=== PATIENT | male | born 1970 | race Caucasian/White ===

== ENCOUNTER 2017-01-23 17:22 | Emergency (ER) | payer MEDICARE, OTHER ==
[2017-01-23 17:34] VITALS: BP 152/106
[2017-01-23] MEDS ORDERED: Doxycycline 100 MG Cap PO ONE (18:05)
--- NOTE | 2017-01-23 18:06 | EDM.PDOC ---
ED HPI GENERAL MEDICAL PROBLEM - General Chief Complaint: Bite:Animal, Insect Stated Complaint: FEVER/CHILLS,BODY ACHES, TICK BITE Time Seen by Provider: 01/23/17 18:01 Source of Information: Reports: Patient, Family () - History of Present Illness INITIAL COMMENTS - FREE TEXT/NARRATIVE: With tick bite on Tuesday. Developed tenderness to area. Today with fever, body ache. Took Tylenol 1000mg 1 hour prior to coming to ER. Has been tired today. Onset: Today Onset Date: 01/23/17 Onset Time: 18:03 Location: Reports: Upper Extremity, Left Severity: Moderate Improves with: Reports: None Worsens with: Reports: None Context: Reports: Other (tick bite) Associated Symptoms: Reports: Fever/Chills, Loss of Appetite, Malaise Treatments [employer]: Reports: Acetaminophen Generalized Pain Score (Numeric/FACES): 3 - Related Data Allergies Allergy/AdvReac Type Severity Reaction Status Date / Time naproxen [From Aleve] Allergy Anaphylactic Verified 01/23/17 17:36 Shock Home Meds: Home Meds Lisinopril 30 mg PO DAILY 08/23/14 [History] Methocarbamol 750 mg PO BID PRN 08/23/14 [History] Aspirin [Ecotrin] 325 mg PO DAILY 03/03/15 [History] Past Medical History Cardiovascular History: Reports: High Cholesterol, Hypertension Musculoskeletal History: Reports: Back Pain, Chronic Neurological History: Reports: Migraines Psychiatric History: Reports: Anxiety, Depression, PTSD - Past Surgical History GI Surgical History: Reports: Appendectomy, Hernia Repair/Other Neurological Surgical History: Reports: Other (See Below) Other Neurological Surgeries/Procedures: plate in neck and low back from injuries Musculoskeletal Surgical History: Reports: Shoulder Surgery Social & Family History - Tobacco Use Smoking Status *Q: Never Smoker Years of Tobacco use: 30 Second Hand Smoke Exposure: No - Alcohol Use Days Per Week of Alcohol Use: 0 - Recreational Drug Use Recreational Drug Use: No ED ROS GENERAL - Review of Systems Review Of Systems: See Below Constitutional: Reports: Fever, Chills, Malaise, Fatigue HEENT: Reports: No Symptoms Respiratory: Reports: No Symptoms Cardiovascular: Reports: No Symptoms GI/Abdominal: Reports: No Symptoms Musculoskeletal: Reports: Joint Pain Skin: Reports: Rash Neurological: Reports: Dizziness, Headache Psychiatric: Reports: No Symptoms Hematologic/Lymphatic: Reports: No Symptoms ED EXAM, ANIMAL BITE - Physical Exam Exam: See Below Exam Limited By: No Limitations General Appearance: Alert, WD/WN, No Apparent Distress Ears: Normal External Exam, Normal Canal, Hearing Grossly Normal, Normal TMs Nose: Normal Inspection, Normal Mucosa, No Blood Throat/Mouth: Normal Inspection, Normal Lips, Normal Teeth, Normal Gums, Normal Oropharynx, Normal Voice, No Airway Compromise Head: Atraumatic, Normocephalic Neck: Normal Inspection, Supple, Non-Tender, Full Range of Motion Respiratory/Chest: No Respiratory Distress, Lungs Clear, Normal Breath Sounds, No Accessory Muscle Use, Chest Non-Tender Cardiovascular: Normal Peripheral Pulses, Regular Rate, Rhythm, No Edema, No Gallop, No JVD, No Murmur, No Rub GI/Abdominal: Normal Bowel Sounds, Soft, Non-Tender, No Organomegaly, No Distention, No Abnormal Bruit, No Mass Extremities: Normal Inspection, Normal Range of Motion, Non-Tender, Normal Capillary Refill, No Pedal Edema Neurological: Alert, Oriented, CN II-XII Intact, Normal Cognition, Normal Gait, Normal Reflexes, No Motor/Sensory Deficits Skin Exam: Other (small puncture wound to left upper thigh with redness around it. Tender to touch.) Course - Vital Signs Last Recorded V/S: Last Vital Signs Temp 101.5 F H 01/23/17 18:24 Pulse 104 H 01/23/17 17:30 Resp 18 01/23/17 17:30 BP 152/106 H 01/23/17 17:30 Pulse Ox 94 L 01/23/17 17:30 - Orders/Labs/Meds Orders: Active Orders 24 hr Category Date Time Status BABESIA MICROTI IGG AND IGM [REF] Stat Lab 01/23/17 18:32 Ordered EHRLICHIA CHAFFEENSIS, IGG&IGM [REF] Stat Lab 01/23/17 18:17 Received LYME AB SCREEN RFLX [REF] Stat Lab 01/23/17 18:17 Received Labs: Laboratory Tests 01/23/17 Range/Units 18:17 WBC 7.5 (4.5-11.0) K/uL RBC 5.08 (4.30-5.90) M/uL Hgb 14.7 (12.0-15.0) g/dL Hct 42.9 (40.0-54.0) % MCV 84 (80-98) fL MCH 29 (27-31) pg MCHC 34 (32-36) % Plt Count 225 (150-400) K/uL Neut % (Auto) 76 H (36-66) % Lymph % (Auto) 11 L (24-44) % [place] % (Auto) 13 H (2-6) % Eos % (Auto) 0 L (2-4) % Baso % (Auto) 0 (0-1) % Meds: Medications Discontinued Medications Generic Name Dose Route Start Last Admin Trade Name Freq PRN Reason Stop Dose Admin Doxycycline Hyclate 200 mg 01/23/17 18:05 01/23/17 18:25 Vibramycin PO 01/23/17 18:06 200 mg ONETIME ONE Administration Departure - Departure Time of Disposition: 18:34 Disposition: Home, Self-Care 01 Condition: good Clinical Impression: Tick bite of groin Qualifiers: Encounter type: initial encounter Qualified Code(s): S30.861A - Insect bite ( nonvenomous) of abdominal wall, initial encounter; W57.XXXA - Bitten or stung by nonvenomous insect and other nonvenomous arthropods, initial encounter - Discharge Information Forms: ED Department Discharge Additional Instructions: CBC WNL. Tick testing pending. Will treat presumptively with Doxycycline 100mg BID x 14 days. 1st dose given today in ER. Continue treating fever with Tylenol as needed. Discussed s/s of tickborne illness with pt and . - Problem List & Annotations (1) Tick bite of groin SNOMED Code(s): 14969946 Code(s): S30.861A - INSECT BITE (NONVENOMOUS) OF ABDOMINAL WALL, INIT ENCNTR ; W57.XXXA - BIT/STUNG BY NONVENOM INSECT & OTH NONVENOM ARTHROPODS, INIT Status: Acute Priority: Low Current Visit: Yes Qualifiers: Encounter type: initial encounter Qualified Code(s): S30.861A - Insect bite (nonvenomous) of abdominal wall, initial encounter; W57.XXXA - Bitten or stung by nonvenomous insect and other nonvenomous arthropods, initial encounter - My Orders Last 24 Hours: My Active Orders 01/23/17 18:17 EHRLICHIA CHAFFEENSIS, IGG&IGM [REF] Stat LYME AB SCREEN RFLX [REF] Stat 01/23/17 18:32 BABESIA MICROTI IGG AND IGM [REF] Stat - Assessment/Plan Last 24 Hours: My Active Orders 01/23/17 18:17 EHRLICHIA CHAFFEENSIS, IGG&IGM [REF] Stat LYME AB SCREEN RFLX [REF] Stat 01/23/17 18:32 BABESIA MICROTI IGG AND IGM [REF] Stat
== END 2017-01-23 18:50 | disposition home or self-care (01) ==
LOC: JP.ED 17:22
DX: S30.861A Insect bite (nonvenomous) of abdominal wall, initial encounter (principal); G43.909 Migraine, unspecified, not intractable, without status migrainosus; Z88.8 Allergy status to other drugs, medicaments and biological substances; Z79.82 Long term (current) use of aspirin; Z79.899 Other long term (current) drug therapy; Z90.49 Acquired absence of other specified parts of digestive tract; Z98.890 Other specified postprocedural states; W57.XXXA Bitten or stung by nonvenomous insect and other nonvenomous arthropods, initial encounter
CPT/HCPCS: 85025; 86618; 86666; 86753; 99283; A9270; 36415

== ENCOUNTER 2019-03-27 09:15 | Day surgery (SDC) | payer MEDICARE, OTHER ==
[~2019-03-27 09:15] MED LIST: Bupivacaine 0.5% 50 ML MDV ONE; Lidocaine 1% with EPINEPHrine 1:100,000 50 ML MDV ONE; Meropenem 500 MG SDV ONE
[2019-03-27] MEDS ORDERED: Dexamethasone 4 MG/ML SDV ONE (09:16)
[2019-03-27] MEDS ORDERED: Succinylcholine 200 MG/10 ML MDV ONE (09:16)
[2019-03-27] MEDS ORDERED: Rocuronium 50 MG/5 ML Vial ONE (09:16)
[2019-03-27] MEDS ORDERED: Glycopyrrolate 0.2 MG/ML 5 ML MDV ONE (09:16)
[2019-03-27] MEDS ORDERED: Propofol 200 MG/20 ML SDV ONE ×2 (09:16→12:01)
[2019-03-27] MEDS ORDERED: Ondansetron 4 MG/2 ML SDV ONE (09:16)
[2019-03-27] MEDS ORDERED: Neostigmine Methylsulfate 1 MG/ML 5 ML Syringe ONE (09:16)
[2019-03-27] MEDS ORDERED: Dextrose 5%-Lactated Ringers 1,000 ML IV SCH (09:30)
[2019-03-27] MEDS ORDERED: Acetaminophen 500 MG Tab PO ONE (09:30)
[2019-03-27] MEDS ORDERED: ceFAZolin 2 GM in Sodium Chloride 0.9% 50 ML IV ONE (09:30)
[2019-03-27] MEDS ORDERED: Ketamine 50 MG in Sodium Chloride 0.9% 49.5 ML IV SCH (10:45)
[2019-03-27] MEDS ORDERED: Ketamine 500 MG/5 ML MDV IV SCH (10:45)
[2019-03-27] MEDS ORDERED: Ketorolac 60 MG/2 ML SDV ONE (12:49)
[2019-03-27] MEDS ORDERED: hydrOXYzine HCl 100 MG/2 ML SDV IM ONE (14:00)
[2019-03-27] MEDS ORDERED: Ondansetron 4 MG/2 ML SDV IVPUSH PRN (14:16)
[2019-03-27] MEDS ORDERED: Methocarbamol 500 MG Tab PO PRN (14:20)
[2019-03-27] MEDS: Tamsulosin 0.4 MG Cap.ER PO SCH ×2 (16:26→21:51)
[2019-03-27] MEDS: Lisinopril 10 MG Tab PO SCH (17:56)
[2019-03-27] MEDS: ceFAZolin 2 GM in Sodium Chloride 0.9% 50 ML IV SCH (17:57)
[2019-03-27] MEDS: Acetaminophen/oxyCODONE 325-5 MG Tab PO PRN (19:18)
[2019-03-27] MEDS: Dextrose 5%-Lactated Ringers 1,000 ML IV SCH (21:51)
[2019-03-28] MEDS: ceFAZolin 2 GM in Sodium Chloride 0.9% 50 ML IV SCH (02:30)
[2019-03-28] MEDS: Dextrose 5%-Lactated Ringers 1,000 ML IV SCH (05:59)
[2019-03-28 06:55] VITALS: BP 144/72; PULSE 89
[2019-03-28] MEDS: Acetaminophen/oxyCODONE 325-5 MG Tab PO PRN (07:11)
[2019-03-28] MEDS ORDERED: Aspirin 325 MG Tab.EC PO SCH (09:00)
[2019-03-28] MEDS: Lisinopril 10 MG Tab PO SCH (09:30)
--- NOTE | 2019-03-29 02:17 | DISCH ---
ADMISSION DIAGNOSES: 1. Bilateral inguinal hernia. 2. Umbilical hernia. 3. Central hypertension. 4. Morbid obesity, BMI 40. 5. Chronic pain. 6. Anxiety. 7. Depression. 8. Hypertriglyceridemia. 9. Gastroesophageal reflux disease. 10.Panic disorder. 11.Tobacco use. DISCHARGE DIAGNOSES: 1. Diagnostic laparoscopy with lysis of adhesions. a. Repair of umbilical hernia with mesh. b. Placement of Vicryl mesh. c. Left inguinal exploration and repair of recurrent incisional left inguinal hernia with mesh and excision of left inguinal nerve and right inguinal exploration and repair of right inguinal hernia with mesh and excision of right inguinal nerve and excision of subfascial lipoma. d. Incarcerated umbilical hernia with extensive intraabdominal adhesions, recurrent and incarcerated, left inguinal hernia direct and indirect right inguinal hernia with ileal inguinal nerve scar entrapment and subfascial lipoma, right inguinal fascia. Date of surgery: 03/27/2019. Surgeon, Dwaine Cardozo MD. HISTORY: Chivo Rene is a 48-year-old male with the above chief complaints. After preoperative evaluation and discussion of possible risks and possible complications, he wished to proceed with surgical procedure. HOSPITAL COURSE: Chivo had a surgery on 03/27/2019. He had no operative complications. On postoperative day #1, his pain was managed. His activity was good. Vital signs were stable and he was able to be discharged to home. During the night, he had several episodes of where his pulse oximetry would decrease into the high 70s and 80s and he had episodes of what thought was to be sleep apnea. He did have O2 per nasal cannula at 1.5 L. when awake, his oximetry was 93% to 94%. He has never had a sleep study. PHYSICAL EXAMINATION: GENERAL: Chivo Rene is a 48-year-old male. VITAL SIGNS: Height is 6 feet, weight is 295 pounds. His BMI is 40. TPR 96, 89, 18, blood pressure is 144/72. O2 oximetry is 93% on room air. HEENT: Negative. NECK: Supple. HEART: Regular rate and rhythm. LUNGS: Clear. ABDOMEN: Stapled incisions of right groin and left groin inguinal area. Dressings dry and intact. He has a pressure dressing over umbilical hernia area. Abdominal binder is on. EXTREMITIES: Without peripheral edema. DISPOSITION: Discharged to home. CONDITION: Stable and improving. FOLLOWUP: Followup appointment with Fariba Myers PA-C on 04/06/2019 at 10 a.m. HOME MEDICATIONS: Percocet 5/325 mg one every 6 hours p.r.n. pain #28. He is to restart methocarbamol 750 mg b.i.d. p.r.n., lisinopril 30 mg p.o. daily, epinephrine epi pack as directed, aspirin 325 mg p.o. daily. DIET: Regular diet as tolerated. Drink 8 to 10 glasses a day of water. ACTIVITY: No lifting more than 10 pounds for 6 weeks. DRIVING: Do not drive for 1 week and while on pain medication. SHOWER: May shower. Keep operative site clean and dry. Wear a pressure dressing over umbilical hernia site with abdominal binder for 6 weeks. May take off dressing in a.m. Notify provider if any fever, increased pain, swelling, redness, nausea, or vomiting. OTHER SPECIAL INSTRUCTION: Use incentive spirometer 10 times every hour while awake for 1 week and follow up with PCP to discuss getting a sleep apnea test.
--- NOTE | 2019-03-29 18:08 | OR ---
DATE OF PROCEDURE: 03/27/2019 PREOPERATIVE DIAGNOSES: 1. Umbilical hernia. 2. Recurrent incarcerated left inguinal hernia. 3. Non-incarcerated and nonrecurrent right inguinal hernia. POSTOPERATIVE DIAGNOSES: 1. Incarcerated umbilical hernia with extensive intraabdominal adhesions. 2. Recurrent incarcerated left inguinal hernia (direct) with ilioinguinal nerve at risk for scar entrapment. 3. Nonrecurrent and non-incarcerated right inguinal hernia (indirect) with ilioinguinal nerve at risk of scar entrapment. 4. Subfascial lipoma, right inguinal floor. OPERATIVE PROCEDURES: 1. Diagnostic laparoscopy with lysis of adhesions and. a. Repair of incarcerated umbilical hernia with mesh (42151). b. Placement of Vicryl mesh to limit adhesion formation between pelvic and abdominal ramírez and underlying viscera (35616). 2. Left inguinal exploration with. a. Repair of recurrent incarcerated left inguinal hernia with mesh (86406). b. Excision of portion of left ilioinguinal nerve (46820). 3. Right inguinal exploration with. a. Repair of right inguinal hernia with mesh (93561). b. Excision of portion of right ilioinguinal nerve (20529). c. Excision of subfascial lipoma (6 cm) on superior aspect of inguinal floor (15931). ANESTHESIA: General. PATIENT CASE COORDINATOR: Fariba Myers PA-C. INDICATION FOR PROCEDURE: The patient presents with an enlarging umbilical hernia as well as bilateral inguinal hernias with the left side having been repaired when he was around age 16. The plan was to proceed with laparoscopic repair of the umbilical hernia with mesh and then repair of the inguinal hernias bilaterally with mesh-plug technique. Potential risks of the procedure including bleeding, infection, injury to underlying viscera, problems with hernias recurring or the mesh becoming infected were gone over, we will often divide the ilioinguinal nerve to avoid chronic pain associated with scarring around the nerve related to the mesh placed across the inguinal floor, that this will result in an area of anesthesia at and below the incision was reviewed with the patient, and he wishes to proceed. DETAILS OF PROCEDURE: The patient was taken to the operating room and placed in a supine position. After general endotracheal anesthesia was induced, a Schwartz catheter was inserted (this was removed at the end of the procedure), and the abdomen was prepped and draped. In the left lateral abdomen, a transverse incision was made and the peritoneal cavity entered under direct vision with an Optiview trocar and inflated to 15 mmHg pressure of CO2. Laparoscope was inserted and no underlying trocar insertion site injuries were seen. Bilateral transversus abdominis plane blocks were then placed in the left upper quadrant as well as the left lower quadrant. The patient was noted to have quite a bit in way of adhesions around the area of the umbilicus as well as previous appendectomy site. These were taken down with Harmonic scalpel. The patient had some incarcerated omentum within the umbilical hernia, which was excised flush with the sac and a portion of the sac was then also excised and sent as a specimen. The falciform ligament was cleared as was the ligamentous tissues inferior to the umbilicus to allow a flat plane for placement of the mesh. A 20.3-cm circular Ventralight ST mesh with balloon positioning system was selected and placed in antibiotic saline solution. This was then placed in intraperitoneal location with a small stab wound on the inferior aspect of the umbilicus being made. The balloon catheter was pulled up out through the abdominal wall, thus positioning the mesh in centered location underlying the hernia. Balloon was then filled up and then the mesh was circumferentially fixed to the abdominal wall with absorbable tacking screws. However, a circumferential ring was then placed and a smaller internal ring closer to the umbilicus was made, after which the balloon catheter was deflated, and the balloon removed leaving the mesh in good position. A 12-inch segment of Vicryl mesh was then placed into the abdomen and placed down along the pelvic sidewalls and behind the urinary bladder and up against the anterior abdominal wall to limit recurrent adhesion formation. Once this was completed, the trocars were removed. The fascia at the 12 mm site was closed with some 0 Vicryl stitch, and the skin at each incision with skin rodolfo. Attention was then taken to the left inguinal area. The previous left inguinal incision was then reused and carried down through the skin and subcutaneous tissue, and through the external oblique aponeurosis. The patient was noted to have some incarcerated fatty tissue, probably some perivesical fat in the medial aspect of the hernia. This was reduced as the transversalis fascia was incised. Cord structures were mobilized upward. The patient was noted to have no recurrence of the indirect component, which he had repaired when he was aged 16. Once the area of dissection was completed, the ilioinguinal nerve was noted to lay right across the floor, where the flat portion of the mesh-plug system would be placed, and this was then divided and excised at the far-lateral aspect of the incision. The transversalis fascia was opened, the dissection underneath the conjoint tendon superiorly, medially, and laterally was accomplished. An extra-large mesh-plug was then placed into the defect and affixed to the Dale's ligament with titanium tacking screws and then to the underside of the conjoint tendon medially, laterally, and superiorly with horizontal mattress sutures of 0 Vicryl stitch. The flat portion of the mesh-plug system was then placed across the inguinal floor and sutured lateral to the cord structures with 0 Vicryl stitch, and the medial aspect fixed to pubic tubercle with a titanium tacking screw. Over this, cord structures were placed and the external oblique aponeurosis was approximated with a 3-0 Vicryl stitch as was the subcutaneous tissue, and the skin closed with rodolfo. The area was anesthetized with an additional 1% lidocaine mixed with Marcaine as well. Attention was then taken to the right side. A symmetrical incision was made and carried down through the skin and subcutaneous tissue, and through the external oblique aponeurosis. On the superior aspect of the incision overlying the inguinal floor, but behind Lucas's fascia line, was a 6-cm lipoma. This was excised and sent for separate histologic evaluation. External oblique aponeurosis was then divided. Subaponeurotic flaps were raised superiorly and inferiorly, and the cord structures were mobilized upward. The floor in this case was noted to be intact medially, and the patient had a smaller indirect hernia. This was dissected free down to the level of the internal ring, after division of the cremasteric fibers and then reduced. A medium mesh-plug was then used on this side and affixed to the underlying conjoint tendon sutured with horizontal mattress sutures of 3-0 Vicryl stitch. The external ring was then tightened up lateral to the cord structures as well with [id number] stitch of 0 Vicryl stitch. The flat portion of the mesh-plug system was then placed as per the left side. The ilioinguinal nerve was excised as well, and the mesh-plug system was fixed laterally with 3-0 Vicryl stitch, and the medial aspect fixed with some titanium tacking screws, which was also used to help fix it to the inguinal floor per se. External oblique aponeurosis was approximated. Closure was then as per the left side as was the injection of the anesthesia. The patient was taken to the recovery room in a satisfactory condition. Physician pediatric assistant, Fariba Myers, played an essential role in assisting in this case, helping to position the patient, retract structures as needed, as well as suturing and cutting sutures when indicated. Her presence improved patient safety and decreased the operative time. Dwaine Cardozo MD /[id number]
== END 2019-03-28 10:00 | disposition home or self-care (01) ==
LOC: JP.SDS 09:15 → JP.MS 14:00 → JP.SDS 03-28 10:00
PROVIDERS: ATTEND Surgery
DX: K42.0 Umbilical hernia with obstruction, without gangrene (principal); K40.31 Unilateral inguinal hernia, with obstruction, without gangrene, recurrent; K40.90 Unilateral inguinal hernia, without obstruction or gangrene, not specified as recurrent; D17.79 Benign lipomatous neoplasm of other sites; I10 Essential (primary) hypertension; E78.1 Pure hyperglyceridemia; K21.9 Gastro-esophageal reflux disease without esophagitis; F41.0 Panic disorder [episodic paroxysmal anxiety]; F41.9 Anxiety disorder, unspecified; F32.9 Major depressive disorder, single episode, unspecified; F17.200 Nicotine dependence, unspecified, uncomplicated; G89.29 Other chronic pain; E66.01 Morbid (severe) obesity due to excess calories; Z68.41 Body mass index [BMI] 40.0-44.9, adult; Z88.6 Allergy status to analgesic agent; Z79.82 Long term (current) use of aspirin; Z79.899 Other long term (current) drug therapy
CPT/HCPCS: 27045; 36415; 49505; 49521; 49653; 64772; 85027; 88302; 88304; 94762; A9270; C1713; C1781; J0171; J0330; J0690; J1100; J1885; J2020; J2185; J2405; J2704; J2710; J2795; J3010; J3410; J3490; J7042; J7050

== ENCOUNTER 2019-04-06 19:09 | Inpatient (IN) | payer MEDICARE, OTHER ==
[2019-04-06] MEDS ORDERED: Ketorolac 30 MG/ML SDV IVPUSH ONE (20:05)
--- NOTE | 2019-04-06 20:08 | EDM.PDOC ---
ED HPI GENERAL MEDICAL PROBLEM - General Chief Complaint: Abdominal Pain Stated Complaint: RIGHT SIDE PAIN, VOMITING/ GB Time Seen by Provider: 04/06/19 19:54 Source of Information: Reports: Patient History Limitations: Reports: No Limitations - History of Present Illness INITIAL COMMENTS - FREE TEXT/NARRATIVE: This gentleman comes in complaining of pain mostly right upper quadrant under the ribs. 10 days ago he had bilateral inguinal and umbilical herniorrhaphies by Dr. Cardozo. He said since the surgery everything was fine at the last couple of days he has been having problems. Even if he drinks just a tiny bit of water he breaks out in sweats and vomits. He's lost 13 pounds since yesterday. He's had gallbladder problems in the past but there was a [facility] with [facility] and so he tried some kind of a home remedy that salt the problem. For the past couple of months she's been having problems after he eats especially if it something greasy. A vomited couple times yesterday and then a had a large emesis at 5 PM tonight. Right Upper Abdomen Pain Score (Numeric/FACES): 4 - Related Data Allergies Allergy/AdvReac Type Severity Reaction Status Date / Time naproxen [From Aleve] Allergy Anaphylactic Verified 03/27/19 09:44 Shock Home Meds: Home Meds Lisinopril 30 mg PO DAILY 08/23/14 [History] Methocarbamol 750 mg PO BID PRN 08/23/14 [History] Aspirin [Ecotrin EC] 81 mg PO DAILY 03/03/15 [History] EPINEPHrine [Epipen 2-Chris] 0.3 ml IM ASDIRECTED PRN 03/22/19 [History] Past Medical History HEENT History: Reports: Impaired Vision Cardiovascular History: Reports: High Cholesterol, Hypertension Respiratory History: Reports: None Gastrointestinal History: Reports: None Genitourinary History: Reports: None Musculoskeletal History: Reports: Back Pain, Chronic Neurological History: Reports: Migraines Psychiatric History: Reports: Anxiety, Depression, PTSD Endocrine/Metabolic History: Reports: None Hematologic History: Reports: None Oncologic (Cancer) History: Reports: None Dermatologic History: Reports: None - Infectious Disease History Infectious Disease History: Reports: Chicken Pox - Past Surgical History HEENT Surgical History: Reports: None Cardiovascular Surgical History: Reports: None Respiratory Surgical History: Reports: None GI Surgical History: Reports: Appendectomy, Hernia, Abdominal, Hernia, Inguinal , Hernia Repair/Other Male Surgical History: Reports: Circumcision Endocrine Surgical History: Reports: None Neurological Surgical History: Reports: C-Spine, Laminectomy, Lumbar Spine, Spinal Fusion, Thoracic Spine, Other (See Below) Other Neurological Surgeries/Procedures: plate in neck and low back from injuries Musculoskeletal Surgical History: Reports: Shoulder Surgery Dermatological Surgical History: Reports: None Social & Family History - Family History Family Medical History: Noncontributory - Tobacco Use Smoking Status *Q: Never Smoker - Caffeine Use Caffeine Use: Reports: Coffee, Soda, Tea Caffeine Use Comment: every couple of days - Recreational Drug Use Recreational Drug Use: No ED ROS GENERAL - Review of Systems Review Of Systems: See Below Constitutional: Reports: No Symptoms HEENT: Reports: No Symptoms Respiratory: Reports: No Symptoms Cardiovascular: Reports: No Symptoms Endocrine: Reports: No Symptoms GI/Abdominal: Reports: Abdominal Pain, Vomiting : Reports: No Symptoms ED EXAM, GI/ABD - Physical Exam Exam: See Below Exam Limited By: No Limitations General Appearance: Alert, Moderate Distress, Obese Eyes: Bilateral: Normal Appearance Throat/Mouth: Normal Oropharynx Head: Atraumatic Neck: Normal Inspection Respiratory/Chest: Lungs Clear Cardiovascular: Regular Rate, Rhythm GI/Abdominal Exam: Tender (Generalized tenderness), Abnormal Bowel Sounds ( Hypoactive) Extremities: Normal Inspection Neurological: Alert, Oriented Psychiatric: Normal Affect Skin Exam: Warm, Dry Course - Vital Signs Last Recorded V/S: Last Vital Signs Temp 36.1 C 04/06/19 19:38 Pulse 62 04/06/19 21:15 Resp 16 04/06/19 21:15 BP 161/104 H 04/06/19 21:15 Pulse Ox 96 04/06/19 21:15 - Orders/Labs/Meds Orders: Active Orders 24 hr Category Date Time Status Iopamidol [Isovue-300 (61%)] Med 04/06/19 20:15 Active 150 ml IV . DIRECTED Sodium Chloride 0.9% [Normal Saline] 80 ml Med 04/06/19 20:15 Active IV ASDIRECTED Sodium Chloride 0.9% [Saline Flush] Med 04/06/19 20:06 Active 10 ml FLUSH ASDIRECTED PRN Saline Lock Insert [OM.PC] Urgent Oth 04/06/19 20:05 Ordered Medication Orders Sodium Chloride (Normal Saline) 80 mls @ 3 mls/sec IV ASDIRECTED SNEHA Last Admin: 04/06/19 20:43 Dose: 3 mls/sec Iopamidol (Isovue-300 (61%)) 150 ml IV . DIRECTED [facility] Last Admin: 04/06/19 20:44 Dose: 150 ml Sodium Chloride (Saline Flush) 10 ml FLUSH ASDIRECTED PRN PRN Reason: Keep Vein Open Last Admin: 04/06/19 20:50 Dose: 10 ml Admin: 04/06/19 20:43 Dose: 10 ml Labs: Laboratory Tests 04/06/19 04/06/19 04/06/19 Range/Units 20:18 20:18 20:18 WBC 19.2 H (4.5-11.0) K/uL RBC 5.77 (4.30-5.90) M/uL Hgb 16.3 H (12.0-15.0) g/dL Hct 50.0 (40.0-54.0) % MCV 87 (80-98) fL MCH 28 (27-31) pg MCHC 33 (32-36) % Plt Count 369 (150-400) K/uL Neut % (Auto) 83 H (36-66) % Lymph % (Auto) 8 L (24-44) % [place] % (Auto) 9 H (2-6) % Eos % (Auto) 0 L (2-4) % Baso % (Auto) 0 (0-1) % Sodium 141 (140-148) mmol/L Potassium 4.2 (3.6-5.2) mmol/L Chloride 102 (100-108) mmol/L Carbon Dioxide 28 (21-32) mmol/L Anion Gap 10.9 (5.0-14.0) mmol/L BUN 27 H D (7-18) mg/dL Creatinine 1.2 (0.8-1.3) mg/dL Est Cr Clr Drug Dosing 82.63 mL/min Estimated GFR (MDRD) > 60 (>60) Glucose 124 H (74-106) mg/dL Calcium 9.5 (8.5-10.1) mg/dL Total Bilirubin 0.8 (0.2-1.0) mg/dL AST 23 (15-37) U/L ALT 50 (12-78) U/L Alkaline Phosphatase 77 (46-116) U/L Total Protein 8.4 H (6.4-8.2) g/dL Albumin 3.8 (3.4-5.0) g/dL Globulin 4.6 H (2.3-3.5) g/dL Albumin/Globulin Ratio 0.8 L (1.2-2.2) Amylase 21 L (25-115) U/L Lipase 92 (73-393) U/L Urine Color Urine Appearance Urine pH (4.5-8.0) Ur Specific [place] (1.008-1.030) Urine Protein (NEGATIVE) mg/dL Urine Glucose (UA) (NEGATIVE) mg/dL Urine Ketones (NEGATIVE) mg/dL Urine Occult Blood (NEGATIVE) Urine Nitrite (NEGAITVE) Urine Bilirubin (NEGATIVE) Urine Urobilinogen (NORMAL) mg/dL Ur Leukocyte Esterase (NEGATIVE) Urine RBC (0-5) Urine WBC (0-5) Ur Epithelial Cells Amorphous Sediment Urine Bacteria Urine Mucus Urine Other 04/06/19 Range/Units 21:03 WBC (4.5-11.0) K/uL RBC (4.30-5.90) M/uL Hgb (12.0-15.0) g/dL Hct (40.0-54.0) % MCV (80-98) fL MCH (27-31) pg MCHC (32-36) % Plt Count (150-400) K/uL Neut % (Auto) (36-66) % Lymph % (Auto) (24-44) % [place] % (Auto) (2-6) % Eos % (Auto) (2-4) % Baso % (Auto) (0-1) % Sodium (140-148) mmol/L Potassium (3.6-5.2) mmol/L Chloride (100-108) mmol/L Carbon Dioxide (21-32) mmol/L Anion Gap (5.0-14.0) mmol/L BUN (7-18) mg/dL Creatinine (0.8-1.3) mg/dL Est Cr Clr Drug Dosing mL/min Estimated GFR (MDRD) (>60) Glucose (74-106) mg/dL Calcium (8.5-10.1) mg/dL Total Bilirubin (0.2-1.0) mg/dL AST (15-37) U/L ALT (12-78) U/L Alkaline Phosphatase (46-116) U/L Total Protein (6.4-8.2) g/dL Albumin (3.4-5.0) g/dL Globulin (2.3-3.5) g/dL Albumin/Globulin Ratio (1.2-2.2) Amylase (25-115) U/L Lipase (73-393) U/L Urine Color Yellow Urine Appearance Clear Urine pH 5.0 (4.5-8.0) Ur Specific [place] 1.015 (1.008-1.030) Urine Protein Trace (NEGATIVE) mg/dL Urine Glucose (UA) Normal (NEGATIVE) mg/dL Urine Ketones Negative (NEGATIVE) mg/dL Urine Occult Blood Trace (NEGATIVE) Urine Nitrite Negative (NEGAITVE) Urine Bilirubin Negative (NEGATIVE) Urine Urobilinogen Normal (NORMAL) mg/dL Ur Leukocyte Esterase Negative (NEGATIVE) Urine RBC 5-10 H (0-5) Urine WBC Not seen (0-5) Ur Epithelial Cells Few Amorphous Sediment Not seen Urine Bacteria Few Urine Mucus Numerous Urine Other Meds: Medications Generic Name Dose Route Start Last Admin Trade Name Freq PRN Reason Stop Dose Admin Sodium Chloride 80 mls @ 3 mls/sec 04/06/19 20:15 04/06/19 20:43 Normal Saline IV 3 mls/sec ASDIRECTED SNHEA Administration Iopamidol 150 ml 04/06/19 20:15 04/06/19 20:44 Isovue-300 (61%) IV 150 ml . DIRECTED SNEHA Administration Sodium Chloride 10 ml 04/06/19 20:06 04/06/19 20:50 Saline Flush FLUSH 10 ml ASDIRECTED PRN Administration Keep Vein Open Discontinued Medications Generic Name Dose Route Start Last Admin Trade Name Freq PRN Reason Stop Dose Admin Ketorolac Tromethamine 30 mg 04/06/19 20:05 04/06/19 20:49 Toradol IVPUSH 04/06/19 20:06 30 mg ONETIME ONE Administration - Re-Assessments/Exams Free Text/Narrative Re-Assessment/Exam: 04/06/19 20:08 pt certain he can safely take toradol. Free Text/Narrative Re-Assessment/Exam: 04/06/19 21:50 This patient received Toradol 30 mg IV and says that seemed to help quite a bit there was no reaction. I spoke with Dr. Anatoliy De La Cruz and he will be in to see the patient very shortly and asked for an NG tube Departure - Departure Time of Disposition: 21:50 Disposition: Admitted As Inpatient 66 Condition: Fair Clinical Impression: Small bowel obstruction - Discharge Information Referrals: Tom Hankins MD [Primary Care Provider] - Forms: ED Department Discharge - My Orders Last 24 Hours: My Active Orders 04/06/19 20:05 Saline Lock Insert [OM.PC] Urgent 04/06/19 20:06 Sodium Chloride 0.9% [Saline Flush] 10 ml FLUSH ASDIRECTED PRN 04/06/19 20:15 Iopamidol [Isovue-300 (61%)] 150 ml IV . DIRECTED Sodium Chloride 0.9% [Normal Saline] 80 ml IV ASDIRECTED - Assessment/Plan Last 24 Hours: My Active Orders 04/06/19 20:05 Saline Lock Insert [OM.PC] Urgent 04/06/19 20:06 Sodium Chloride 0.9% [Saline Flush] 10 ml FLUSH ASDIRECTED PRN 04/06/19 20:15 Iopamidol [Isovue-300 (61%)] 150 ml IV . DIRECTED Sodium Chloride 0.9% [Normal Saline] 80 ml IV ASDIRECTED
[2019-04-06] MEDS ORDERED: Iopamidol 612 MG/ML 150 ML Bottle IV SCH (20:15)
[2019-04-06] MEDS ORDERED: Sodium Chloride 0.9% 80 ML IV SCH (20:15)
[2019-04-06] MEDS: Sodium Chloride 0.9% 10 ML Syringe FLUSH PRN ×2 (20:43→20:50)
--- NOTE | 2019-04-06 21:30 | CRLCT ---
INDICATION: Right upper quadrant abdominal pain, recent bilateral inguinal and abdominal hernia repair TECHNIQUE: CT Abdomen and pelvis with i.v. contrast. Coronal and sagittal reformats were obtained. CONTRAST: 150 mL Isovue 300 COMPARISON: 01/08/2019 FINDINGS: Lower chest: Mild discoid atelectasis is seen in the lingula. Liver: Unremarkable. Spleen: Unremarkable. Pancreas: Unremarkable. Gallbladder: Unremarkable. Kidney: Unremarkable. No kidney or ureteral stones or obstruction seen. Adrenal: Unremarkable. Bowel: Fluid-filled small bowel loops are present measuring up to 3.9 cm with a transition point in the anterior midabdomen near the periumbilical region. The appendix is not visualized. Vascular: Unremarkable. Lymph: Unremarkable. Peritoneum: Unremarkable. No pneumoperitoneum is seen. Trace pelvic ascites is noted. Pelvis: Bilateral inguinal herniorrhaphy seen with fluid and gas present in the left lower quadrant and infiltration of the subcutaneous fat from recent surgery. Soft tissue: Anterior abdominal wall is present with a small amount of adjacent fluid superficial to the mesh. No definite abscess is identified. A small amount of fluid and gas is seen in the umbilicus. Bone: Anterior and posterior spinal fusion of L5-S1 with total laminectomy of L5 noted. IMPRESSIONS: 1. Fluid-filled small bowel loops are present measuring up to 3.9 cm with a transition point in the anterior midabdomen near the periumbilical region. Findings are consistent with mechanical small bowel obstruction. 2. A small amount of fluid and gas is seen in the umbilicus. This may be a sequela of recent surgery but correlation with physical examination is recommended. Dictated by Yoshi Lemos MD @ 04/06/2019 9:29:54 PM Please note that all CT scans at this facility use dose modulation, iterative reconstruction, and/or weight-based dosing when appropriate to reduce radiation dose to as low as reasonably achievable. Dictated by: Yoshi Lemos MD @ 04/06/2019 21:29:58 (Electronically Signed)
[2019-04-06] MEDS ORDERED: Lidocaine 2% Jelly 10 ML Urojet MUCMEM ONE (22:08)
[2019-04-06] MEDS ORDERED: Ondansetron 4 MG/2 ML SDV IV PRN (22:45)
[2019-04-06] MEDS ORDERED: Non-Formulary Medication 1 Each (Epinephrine [Epipen 2-Pak] 0.3 ML) IM PRN (22:53)
--- NOTE | 2019-04-06 23:01 | PCM.HP ---
H&P History of Present Illness - General Date of Service: 04/06/19 Admit Problem/Dx: Admission Diagnosis/Problem Admission Diagnosis/Problem Small bowel obstruction Source of Information: Patient, Old Records, Provider History Limitations: Reports: No Limitations - History of Present Illness Initial Comments - Free Text/Narative: This 48 year old white male underwent open bilateral inguinal hernia repair and laparoscopic umbilical hernia repair by Dr. Cardozo on March 27, 2019. About a 20m cm mesh was used to repair the umbilical hernia. Vicryl mesh was also place to minimize bowel contact with the abdominal wall to limit adhesion formation to the abdominal wall. He complains of several days of intermittent upper abdominal pain which sounds like it is crampy. No constant pain. He has developed trouble with eating--"everything comes back up." He had what sounds like a massive emesis with severe pain which caused him to come to the ER. Here a CT scan is consistent with a SBO. Onset of Symptoms: Reports: Gradual Symptom Onset Date: 04/04/19 Symptom Onset Time: 18:00 Duration of Symptoms: Reports: Day(s): (On and off. ), Getting Worse Location: Reports: Abdomen Quality: Reports: Other (Crampy) Severity: Moderate (Severe today.) Improves with: Reports: None Worsens with: Reports: Eating Context: Reports: Other ( Post operative.) Associated Symptoms: Reports: Nausea/Vomiting Right Upper Abdomen Pain Score (Numeric/FACES): 4 - Related Data Allergies/Adverse Reactions: Allergies Allergy/AdvReac Type Severity Reaction Status Date / Time naproxen [From Aleve] Allergy Anaphylactic Verified 03/27/19 09:44 Shock Home Medications: Home Meds Lisinopril 30 mg PO DAILY 08/23/14 [History] Methocarbamol 750 mg PO BID PRN 08/23/14 [History] Aspirin [Ecotrin EC] 81 mg PO DAILY 03/03/15 [History] EPINEPHrine [Epipen 2-Chris] 0.3 ml IM ASDIRECTED PRN 03/22/19 [History] Past Medical History HEENT History: Reports: Impaired Vision Cardiovascular History: Reports: High Cholesterol, Hypertension Respiratory History: Reports: None Gastrointestinal History: Reports: None Genitourinary History: Reports: None Musculoskeletal History: Reports: Back Pain, Chronic Neurological History: Reports: Migraines Psychiatric History: Reports: Anxiety, Depression, PTSD Endocrine/Metabolic History: Reports: None Hematologic History: Reports: None Oncologic (Cancer) History: Reports: None Dermatologic History: Reports: None - Infectious Disease History Infectious Disease History: Reports: Chicken Pox - Past Surgical History HEENT Surgical History: Reports: None Cardiovascular Surgical History: Reports: None Respiratory Surgical History: Reports: None GI Surgical History: Reports: Appendectomy, Hernia, Abdominal, Hernia, Inguinal , Hernia Repair/Other Male Surgical History: Reports: Circumcision Endocrine Surgical History: Reports: None Neurological Surgical History: Reports: C-Spine, Laminectomy, Lumbar Spine, Spinal Fusion, Thoracic Spine, Other (See Below) Other Neurological Surgeries/Procedures: plate in neck and low back from injuries Musculoskeletal Surgical History: Reports: Shoulder Surgery Dermatological Surgical History: Reports: None Social & Family History - Family History Family Medical History: Noncontributory - Tobacco Use Smoking Status *Q: Never Smoker - Caffeine Use Caffeine Use: Reports: Coffee, Soda, Tea Caffeine Use Comment: every couple of days - Recreational Drug Use Recreational Drug Use: No - Living Situation & Occupation Occupation: Employed (Retired [employer] soldier.) H&P Review of Systems - Review of Systems: Review Of Systems: See Below General: Reports: Decreased Appetite, Other (Nausea and vomiting) HEENT: Reports: No Symptoms Pulmonary: Reports: No Symptoms Cardiovascular: Reports: No Symptoms Gastrointestinal: Reports: Abdominal Pain (Improved now. ), Decreased Appetite, Nausea, Vomiting. Denies: Flatus Genitourinary: Reports: No Symptoms Musculoskeletal: Reports: No Symptoms Skin: Reports: No Symptoms Psychiatric: Reports: No Symptoms Neurological: Reports: No Symptoms Hematologic/Lymphatic: Reports: No Symptoms Immunologic: Reports: No Symptoms Exam - Exam Exam: See Below - Vital Signs Vital Signs: Last Vital Signs Temp 97.0 F 04/06/19 19:38 Pulse 62 04/06/19 21:15 Resp 16 04/06/19 21:15 BP 161/104 H 04/06/19 21:15 Pulse Ox 96 04/06/19 21:15 Weight: 283 lb 15.286 oz - Exam General: Alert, Oriented, Cooperative, Other (No distress now. ) Lungs: Clear to Auscultation Cardiovascular: Regular Rate GI/Abdominal Exam: Tender (Mild tenderness. No peritoneal signs. No pain with cough. ), Abnormal Bowel Sounds (Hypoactive) Extremities: Normal Inspection Skin: Other (Incisions appear well with no evidence of infection. ) Neuro Extensive - Mental Status: Alert, Oriented x3, Normal Mood/Affect, Normal Cognition Psychiatric: Alert, Normal Affect, Normal Mood - Patient Data Lab Results Last 24 hrs: Laboratory Results - last 24 hr 04/06/19 04/06/19 04/06/19 Range/Units 20:18 20:18 20:18 WBC 19.2 H (4.5-11.0) K/uL RBC 5.77 (4.30-5.90) M/uL Hgb 16.3 H (12.0-15.0) g/dL Hct 50.0 (40.0-54.0) % MCV 87 (80-98) fL MCH 28 (27-31) pg MCHC 33 (32-36) % Plt Count 369 (150-400) K/uL Neut % (Auto) 83 H (36-66) % Lymph % (Auto) 8 L (24-44) % [place] % (Auto) 9 H (2-6) % Eos % (Auto) 0 L (2-4) % Baso % (Auto) 0 (0-1) % Sodium 141 (140-148) mmol/L Potassium 4.2 (3.6-5.2) mmol/L Chloride 102 (100-108) mmol/L Carbon Dioxide 28 (21-32) mmol/L Anion Gap 10.9 (5.0-14.0) mmol/L BUN 27 H D (7-18) mg/dL Creatinine 1.2 (0.8-1.3) mg/dL Est Cr Clr Drug Dosing 82.63 mL/min Estimated GFR (MDRD) > 60 (>60) Glucose 124 H (74-106) mg/dL Calcium 9.5 (8.5-10.1) mg/dL Total Bilirubin 0.8 (0.2-1.0) mg/dL AST 23 (15-37) U/L ALT 50 (12-78) U/L Alkaline Phosphatase 77 (46-116) U/L Total Protein 8.4 H (6.4-8.2) g/dL Albumin 3.8 (3.4-5.0) g/dL Globulin 4.6 H (2.3-3.5) g/dL Albumin/Globulin Ratio 0.8 L (1.2-2.2) Amylase 21 L (25-115) U/L Lipase 92 (73-393) U/L Urine Color Urine Appearance Urine pH (4.5-8.0) Ur Specific [place] (1.008-1.030) Urine Protein (NEGATIVE) mg/dL Urine Glucose (UA) (NEGATIVE) mg/dL Urine Ketones (NEGATIVE) mg/dL Urine Occult Blood (NEGATIVE) Urine Nitrite (NEGAITVE) Urine Bilirubin (NEGATIVE) Urine Urobilinogen (NORMAL) mg/dL Ur Leukocyte Esterase (NEGATIVE) Urine RBC (0-5) Urine WBC (0-5) Ur Epithelial Cells Amorphous Sediment Urine Bacteria Urine Mucus Urine Other 04/06/19 Range/Units 21:03 WBC (4.5-11.0) K/uL RBC (4.30-5.90) M/uL Hgb (12.0-15.0) g/dL Hct (40.0-54.0) % MCV (80-98) fL MCH (27-31) pg MCHC (32-36) % Plt Count (150-400) K/uL Neut % (Auto) (36-66) % Lymph % (Auto) (24-44) % [place] % (Auto) (2-6) % Eos % (Auto) (2-4) % Baso % (Auto) (0-1) % Sodium (140-148) mmol/L Potassium (3.6-5.2) mmol/L Chloride (100-108) mmol/L Carbon Dioxide (21-32) mmol/L Anion Gap (5.0-14.0) mmol/L BUN (7-18) mg/dL Creatinine (0.8-1.3) mg/dL Est Cr Clr Drug Dosing mL/min Estimated GFR (MDRD) (>60) Glucose (74-106) mg/dL Calcium (8.5-10.1) mg/dL Total Bilirubin (0.2-1.0) mg/dL AST (15-37) U/L ALT (12-78) U/L Alkaline Phosphatase (46-116) U/L Total Protein (6.4-8.2) g/dL Albumin (3.4-5.0) g/dL Globulin (2.3-3.5) g/dL Albumin/Globulin Ratio (1.2-2.2) Amylase (25-115) U/L Lipase (73-393) U/L Urine Color Yellow Urine Appearance Clear Urine pH 5.0 (4.5-8.0) Ur Specific [place] 1.015 (1.008-1.030) Urine Protein Trace (NEGATIVE) mg/dL Urine Glucose (UA) Normal (NEGATIVE) mg/dL Urine Ketones Negative (NEGATIVE) mg/dL Urine Occult Blood Trace (NEGATIVE) Urine Nitrite Negative (NEGAITVE) Urine Bilirubin Negative (NEGATIVE) Urine Urobilinogen Normal (NORMAL) mg/dL Ur Leukocyte Esterase Negative (NEGATIVE) Urine RBC 5-10 H (0-5) Urine WBC Not seen (0-5) Ur Epithelial Cells Few Amorphous Sediment Not seen Urine Bacteria Few Urine Mucus Numerous Urine Other Result Diagrams: 04/06/19 20:18 04/06/19 20:18 - Problem List (1) Small bowel obstruction SNOMED Code(s): 443048302 ICD Code: K56.609 - UNSP INTESTNL OBST, UNSP TO PARTIAL VERSUS COMPLETE OBST Status: Acute Current Visit: Yes Problem List Initiated/Reviewed/Updated: Yes Orders Last 24hrs: Active Orders 24 hr Category Date Time Status Patient Status [ADT] Routine ADT 04/06/19 22:45 Ordered Ambulate [RC] QID Care 04/06/19 22:45 Ordered Ambulate [RC] QID Care 04/06/19 22:45 Ordered Communication Order [RC] ROUTINE Care 04/06/19 22:54 Ordered Intake and Output [RC] QSHIFT Care 04/06/19 22:48 Ordered May Shower [RC] ASDIRECTED Care 04/06/19 22:45 Ordered Oxygen Therapy [RC] PRN Care 04/06/19 22:45 Ordered Pulse Oximetry [RC] PRN Care 04/06/19 22:48 Ordered Up ad Kavitha [RC] ASDIRECTED Care 04/06/19 22:45 Ordered VTE/DVT Education [RC] Per Unit Routine Care 04/06/19 22:45 Ordered Vital Signs [RC] Q4H Care 04/06/19 22:45 Ordered Nothing per Oral Now Diet [DIET] Diet 04/07/19 Breakfast Ordered BASIC METABOLIC PANEL,BMP [CHEM] DAILY Lab 04/07/19 05:11 Ordered BASIC METABOLIC PANEL,BMP [CHEM] DAILY Lab 04/08/19 05:11 Ordered BASIC METABOLIC PANEL,BMP [CHEM] DAILY Lab 04/09/19 05:11 Ordered BASIC METABOLIC PANEL,BMP [CHEM] DAILY Lab 04/10/19 05:11 Ordered BASIC METABOLIC PANEL,BMP [CHEM] DAILY Lab 04/11/19 05:11 Ordered BASIC METABOLIC PANEL,BMP [CHEM] DAILY Lab 04/12/19 05:11 Ordered CBC W/O DIFF,HEMOGRAM [HEME] DAILY Lab 04/07/19 05:11 Ordered CBC W/O DIFF,HEMOGRAM [HEME] DAILY Lab 04/08/19 05:11 Ordered CBC W/O DIFF,HEMOGRAM [HEME] DAILY Lab 04/09/19 05:11 Ordered CBC W/O DIFF,HEMOGRAM [HEME] DAILY Lab 04/10/19 05:11 Ordered CBC W/O DIFF,HEMOGRAM [HEME] DAILY Lab 04/11/19 05:11 Ordered CBC W/O DIFF,HEMOGRAM [HEME] DAILY Lab 04/12/19 05:11 Ordered Dextrose 5%-1/2 Normal Saline with KCl 20 mEq @ 125 mL/ Med 04/06/19 23:00 Ordered Hr (1000 mL) D5 1/2 NS w/ 20 mEq/L KCl 1,000 ml IV ASDIRECTED EPINEPHrine [Epipen 2-Chris] Med 04/06/19 22:53 Ordered 0.3 ml IM ASDIRECTED PRN Iopamidol [Isovue-300 (61%)] Med 04/06/19 20:15 Active 150 ml IV . DIRECTED Ondansetron [Zofran] Med 04/06/19 22:45 Ordered 4 mg IV Q6H PRN Sodium Chloride 0.9% [Normal Saline] 80 ml Med 04/06/19 20:15 Active IV ASDIRECTED Sodium Chloride 0.9% [Saline Flush] Med 04/06/19 20:06 Active 10 ml FLUSH ASDIRECTED PRN Nasogastric Orogastric Tube Insertion [OM.PC] Urgent Oth 04/06/19 22:48 Ordered Saline Lock Insert [OM.PC] Urgent Oth 04/06/19 20:05 Ordered Resuscitation Status Routine Resus Stat 04/06/19 22:45 Ordered Medication Orders Sodium Chloride (Normal Saline) 80 mls @ 3 mls/sec IV ASDIRECTED SNEHA Last Admin: 04/06/19 20:43 Dose: 3 mls/sec Potassium Chloride/Dextrose/Sod Cl (D5 1/2 Ns W/ 20 Meq/L Kcl) 1,000 mls @ 125 mls/hr IV ASDIRECTED SNEHA Iopamidol (Isovue-300 (61%)) 150 ml IV . DIRECTED SNEHA Last Admin: 04/06/19 20:44 Dose: 150 ml Non-Formulary Medication (Epinephrine [Epipen 2-Chris]) 0.3 ml IM ASDIRECTED PRN PRN Reason: Anaphylaxis Ondansetron HCl (Zofran) 4 mg IV Q6H PRN PRN Reason: Nausea/Vomiting Sodium Chloride (Saline Flush) 10 ml FLUSH ASDIRECTED PRN PRN Reason: Keep Vein Open Last Admin: 04/06/19 20:50 Dose: 10 ml Admin: 04/06/19 20:43 Dose: 10 ml Assessment/Plan Comment:: Impression: Small bowel obstruction post operative. Comfortable now. NG tube in place. Plan: Admit, IV support, NG tube. Hope SBO resolves.
[2019-04-07] MEDS: D5 1/2 NS w/ 20 mEq/L KCl 1,000 ML IV SCH ×3 (00:19→15:53)
[2019-04-07] MEDS ORDERED: Sodium Chloride 0.9% 250 ML IV SCH (06:00)
--- NOTE | 2019-04-07 08:10 | CRLCR ---
HISTORY: Small bowel obstruction. TECHNIQUE: Supine and upright frontal views of the abdomen. COMPARISON: CT abdomen pelvis 04/06/2018. FINDINGS: Several gas-filled dilated loops of small bowel. Few air-fluid levels on the upright views. No free intraperitoneal gas. Enteric tube terminates in the proximal stomach with side port near the GE junction. Minimal gas in the colon. Postoperative and degenerative changes of the spine. Contrast in the bladder. IMPRESSION: Small-bowel obstruction. Dictated by Giovani Molina MD @ Apr 07 2019 8:02AM Signed by Dr. Giovani Molina @ Apr 07 2019 8:08AM
[2019-04-07] MEDS: Sodium Chloride 0.9% 1,000 ML IV SCH ×2 (08:15→18:26)
--- NOTE | 2019-04-07 10:35 | PCM.PN ---
- General Info Date of Service: 04/07/19 Admission Dx/Problem (Free Text): Admission Diagnosis/Problem Admission Diagnosis/Problem Small bowel obstruction Functional Status: Reports: Pain Controlled, Ambulating, Urinating. Denies: Tolerating Diet (NPO) - Review of Systems General: Reports: No Symptoms HEENT: Reports: No Symptoms Pulmonary: Reports: No Symptoms Cardiovascular: Reports: No Symptoms Gastrointestinal: Reports: No Symptoms, Flatus (Says he passed a very small amount of gas. ). Denies: Abdominal Pain Genitourinary: Reports: No Symptoms Musculoskeletal: Reports: No Symptoms Skin: Reports: No Symptoms Neurological: Reports: No Symptoms Psychiatric: Reports: No Symptoms - Patient Data Vitals - Most Recent: Last Vital Signs Temp 97.6 F 04/07/19 07:25 Pulse 82 04/07/19 07:25 Resp 16 04/07/19 07:25 BP 141/85 H 04/07/19 07:25 Pulse Ox 93 L 04/07/19 07:25 Weight - Most Recent: 285 lb I&O - Last 24 Hours: Intake & Output 04/06/19 04/07/19 04/07/19 22:59 06:59 14:59 Intake Total 681 Output Total 100 Balance 581 Lab Results Last 24 Hours: Laboratory Results - last 24 hr 04/06/19 04/06/19 04/06/19 Range/Units 20:18 20:18 20:18 WBC 19.2 H (4.5-11.0) K/uL RBC 5.77 (4.30-5.90) M/uL Hgb 16.3 H (12.0-15.0) g/dL Hct 50.0 (40.0-54.0) % MCV 87 (80-98) fL MCH 28 (27-31) pg MCHC 33 (32-36) % Plt Count 369 (150-400) K/uL Neut % (Auto) 83 H (36-66) % Lymph % (Auto) 8 L (24-44) % [place] % (Auto) 9 H (2-6) % Eos % (Auto) 0 L (2-4) % Baso % (Auto) 0 (0-1) % Sodium 141 (140-148) mmol/L Potassium 4.2 (3.6-5.2) mmol/L Chloride 102 (100-108) mmol/L Carbon Dioxide 28 (21-32) mmol/L Anion Gap 10.9 (5.0-14.0) mmol/L BUN 27 H D (7-18) mg/dL Creatinine 1.2 (0.8-1.3) mg/dL Est Cr Clr Drug Dosing 82.63 mL/min Estimated GFR (MDRD) > 60 (>60) Glucose 124 H (74-106) mg/dL Calcium 9.5 (8.5-10.1) mg/dL Total Bilirubin 0.8 (0.2-1.0) mg/dL AST 23 (15-37) U/L ALT 50 (12-78) U/L Alkaline Phosphatase 77 (46-116) U/L Total Protein 8.4 H (6.4-8.2) g/dL Albumin 3.8 (3.4-5.0) g/dL Globulin 4.6 H (2.3-3.5) g/dL Albumin/Globulin Ratio 0.8 L (1.2-2.2) Amylase 21 L (25-115) U/L Lipase 92 (73-393) U/L Urine Color Urine Appearance Urine pH (4.5-8.0) Ur Specific [place] (1.008-1.030) Urine Protein (NEGATIVE) mg/dL Urine Glucose (UA) (NEGATIVE) mg/dL Urine Ketones (NEGATIVE) mg/dL Urine Occult Blood (NEGATIVE) Urine Nitrite (NEGAITVE) Urine Bilirubin (NEGATIVE) Urine Urobilinogen (NORMAL) mg/dL Ur Leukocyte Esterase (NEGATIVE) Urine RBC (0-5) Urine WBC (0-5) Ur Epithelial Cells Amorphous Sediment Urine Bacteria Urine Mucus Urine Other 04/06/19 04/07/19 04/07/19 Range/Units 21:03 05:00 05:00 WBC 14.3 H (4.5-11.0) K/uL RBC 5.42 (4.30-5.90) M/uL Hgb 15.4 H (12.0-15.0) g/dL Hct 47.9 (40.0-54.0) % MCV 88 (80-98) fL MCH 28 (27-31) pg MCHC 32 (32-36) % Plt Count 344 (150-400) K/uL Neut % (Auto) (36-66) % Lymph % (Auto) (24-44) % [place] % (Auto) (2-6) % Eos % (Auto) (2-4) % Baso % (Auto) (0-1) % Sodium 142 (140-148) mmol/L Potassium 4.1 (3.6-5.2) mmol/L Chloride 104 (100-108) mmol/L Carbon Dioxide 26 (21-32) mmol/L Anion Gap 12.0 (5.0-14.0) mmol/L BUN 33 H (7-18) mg/dL Creatinine 1.3 (0.8-1.3) mg/dL Est Cr Clr Drug Dosing 76.27 mL/min Estimated GFR (MDRD) 59 L (>60) Glucose 126 H (74-106) mg/dL Calcium 9.0 (8.5-10.1) mg/dL Total Bilirubin (0.2-1.0) mg/dL AST (15-37) U/L ALT (12-78) U/L Alkaline Phosphatase (46-116) U/L Total Protein (6.4-8.2) g/dL Albumin (3.4-5.0) g/dL Globulin (2.3-3.5) g/dL Albumin/Globulin Ratio (1.2-2.2) Amylase (25-115) U/L Lipase (73-393) U/L Urine Color Yellow Urine Appearance Clear Urine pH 5.0 (4.5-8.0) Ur Specific [place] 1.015 (1.008-1.030) Urine Protein Trace (NEGATIVE) mg/dL Urine Glucose (UA) Normal (NEGATIVE) mg/dL Urine Ketones Negative (NEGATIVE) mg/dL Urine Occult Blood Trace (NEGATIVE) Urine Nitrite Negative (NEGAITVE) Urine Bilirubin Negative (NEGATIVE) Urine Urobilinogen Normal (NORMAL) mg/dL Ur Leukocyte Esterase Negative (NEGATIVE) Urine RBC 5-10 H (0-5) Urine WBC Not seen (0-5) Ur Epithelial Cells Few Amorphous Sediment Not seen Urine Bacteria Few Urine Mucus Numerous Urine Other Med Orders - Current: Current Medications Potassium Chloride/Dextrose/Sod Cl (D5 1/2 Ns W/ 20 Meq/L Kcl) 1,000 mls @ 125 mls/hr IV ASDIRECTED [facility] Last Admin: 04/07/19 07:46 Dose: 125 mls/hr Sodium Chloride (Normal Saline) 1,000 mls @ 50 mls/hr IV BID@0600,1800 [facility] Ondansetron HCl (Zofran) 4 mg IV Q6H PRN PRN Reason: Nausea/Vomiting Discontinued Medications Sodium Chloride (Normal Saline) 80 mls @ 3 mls/sec IV ASDIRECTED [facility] Last Admin: 04/06/19 20:43 Dose: 3 mls/sec Sodium Chloride (Normal Saline) 250 mls @ 50 mls/hr IV BID@0600,1800 [facility] Last Admin: 04/07/19 08:09 Dose: Not Given Iopamidol (Isovue-300 (61%)) 150 ml IV . DIRECTED [facility] Last Admin: 04/06/19 20:44 Dose: 150 ml Ketorolac Tromethamine (Toradol) 30 mg IVPUSH ONETIME ONE Stop: 04/06/19 20:06 Last Admin: 04/06/19 20:49 Dose: 30 mg Lidocaine HCl (Xylocaine 2% Jelly) 10 ml MUCMEM ONETIME ONE Stop: 04/06/19 22:09 Last Admin: 04/06/19 22:21 Dose: 10 ml Non-Formulary Medication (Epinephrine [Epipen 2-Chris]) 0.3 ml IM ASDIRECTED PRN PRN Reason: Anaphylaxis Sodium Chloride (Saline Flush) 10 ml FLUSH ASDIRECTED PRN PRN Reason: Keep Vein Open Last Admin: 04/06/19 20:50 Dose: 10 ml - Exam General: Alert, Oriented, Cooperative, No Acute Distress Lungs: Clear to Auscultation, Normal Respiratory Effort Cardiovascular: Regular Rate, Regular Rhythm GI/Abdominal Exam: Soft, Non-Tender, Abnormal Bowel Sounds (Hypoactive) (Male) Exam: No Hernia Back Exam: Normal Inspection (Scars from spine surgery) Extremities: Normal Inspection Skin: Warm, Dry, Intact Neurological: No New Focal Deficit Psy/Mental Status: Alert, Normal Affect, Normal Mood - Problem List & Annotations (1) Small bowel obstruction SNOMED Code(s): 619918529 Code(s): K56.609 - UNSP INTESTNL OBST, UNSP TO PARTIAL VERSUS COMPLETE OBST Status: Acute Current Visit: Yes - Problem List Review Problem List Initiated/Reviewed/Updated: Yes - My Orders Last 24 Hours: My Active Orders 04/06/19 22:45 Patient Status [ADT] Routine Ambulate [RC] QID May Shower [RC] ASDIRECTED Oxygen Therapy [RC] PRN Up ad Kavitha [RC] ASDIRECTED VTE/DVT Education [RC] Per Unit Routine Vital Signs [RC] Q4H Ondansetron [Zofran] 4 mg IV Q6H PRN Resuscitation Status Routine 04/06/19 22:48 Intake and Output [RC] QSHIFT Pulse Oximetry [RC] PRN Nasogastric Orogastric Tube Insertion [OM.PC] Urgent 04/06/19 22:54 Communication Order [RC] ROUTINE 04/06/19 23:00 D5 1/2 NS w/ 20 mEq/L KCl 1,000 ml IV ASDIRECTED 04/07/19 08:15 Sodium Chloride 0.9% [Normal Saline] 1,000 ml IV BID@0600,1800 04/07/19 Breakfast Nothing per Oral Now Diet [DIET] 04/08/19 05:11 BASIC METABOLIC PANEL,BMP [CHEM] DAILY CBC W/O DIFF,HEMOGRAM [HEME] DAILY 04/09/19 05:11 BASIC METABOLIC PANEL,BMP [CHEM] DAILY CBC W/O DIFF,HEMOGRAM [HEME] DAILY 04/10/19 05:11 BASIC METABOLIC PANEL,BMP [CHEM] DAILY CBC W/O DIFF,HEMOGRAM [HEME] DAILY 04/11/19 05:11 BASIC METABOLIC PANEL,BMP [CHEM] DAILY CBC W/O DIFF,HEMOGRAM [HEME] DAILY 04/12/19 05:11 BASIC METABOLIC PANEL,BMP [CHEM] DAILY CBC W/O DIFF,HEMOGRAM [HEME] DAILY - Assessment Assessment:: SBO. Says he passed a very small amount of flatus. He is in no distress. His abdominal x-rays are consistent with an SBO. - Plan Plan:: Impression: Small bowel obstruction post operative. Comfortable now. NG tube in place. Plan: Admit, IV support, NG tube. Hope SBO resolves. Continue present plan.
[2019-04-08] MEDS: D5 1/2 NS w/ 20 mEq/L KCl 1,000 ML IV SCH ×3 (00:38→19:47)
[2019-04-08] MEDS: Sodium Chloride 0.9% 1,000 ML IV SCH ×2 (06:19→17:35)
--- NOTE | 2019-04-08 07:22 | CRLCR ---
INDICATION: Bowel obstruction. TECHNIQUE: Five views of the abdomen and pelvis. COMPARISON: 04/07/2019. IMPRESSION: Enteric tube is in stable position. Stable moderately dilated small bowel loops, containing air-fluid levels on the upright images, with a relative paucity of bowel gas in the colon, consistent with a persistent small bowel obstruction. No signs of free intraperitoneal air. Overall, findings appear relatively stable. Dictated by Hu Burks MD @ 04/08/2019 7:22:14 AM Dictated by: Hu Burks MD @ 04/08/2019 07:22:22 (Electronically Signed)
--- NOTE | 2019-04-08 10:09 | PCM.PN ---
- General Info Date of Service: 04/08/19 Admission Dx/Problem (Free Text): Small bowel obstruction Functional Status: Reports: Pain Controlled, Ambulating, Urinating, New Symptoms (Passing gas and having BM's) - Review of Systems General: Reports: No Symptoms HEENT: Reports: No Symptoms Pulmonary: Reports: No Symptoms Cardiovascular: Reports: No Symptoms Gastrointestinal: Reports: No Symptoms Genitourinary: Reports: No Symptoms Musculoskeletal: Reports: No Symptoms Skin: Reports: No Symptoms Neurological: Reports: No Symptoms Psychiatric: Reports: No Symptoms - Patient Data Vitals - Most Recent: Last Vital Signs Temp 97.9 F 04/08/19 08:11 Pulse 67 04/08/19 08:11 Resp 16 04/08/19 08:11 BP 140/91 H 04/08/19 08:11 Pulse Ox 94 L 04/08/19 08:11 Weight - Most Recent: 285 lb I&O - Last 24 Hours: Intake & Output 04/07/19 04/08/19 04/08/19 22:59 06:59 14:59 Intake Total 2500 Output Total 350 525 Balance -350 1975 Lab Results Last 24 Hours: Laboratory Results - last 24 hr 04/08/19 04/08/19 Range/Units 04:59 04:59 WBC 12.7 H (4.5-11.0) K/uL RBC 4.97 (4.30-5.90) M/uL Hgb 14.1 (12.0-15.0) g/dL Hct 44.6 (40.0-54.0) % MCV 90 (80-98) fL MCH 28 (27-31) pg MCHC 32 (32-36) % Plt Count 304 (150-400) K/uL Sodium 143 (140-148) mmol/L Potassium 4.0 (3.6-5.2) mmol/L Chloride 106 (100-108) mmol/L Carbon Dioxide 28 (21-32) mmol/L Anion Gap 9.5 (5.0-14.0) mmol/L BUN 23 H (7-18) mg/dL Creatinine 1.2 (0.8-1.3) mg/dL Est Cr Clr Drug Dosing 82.63 mL/min Estimated GFR (MDRD) > 60 (>60) Glucose 102 (74-106) mg/dL Calcium 8.6 (8.5-10.1) mg/dL Med Orders - Current: Current Medications Potassium Chloride/Dextrose/Sod Cl (D5 1/2 Ns W/ 20 Meq/L Kcl) 1,000 mls @ 125 mls/hr IV ASDIRECTED [facility] Last Admin: 04/08/19 09:05 Dose: 125 mls/hr Sodium Chloride (Normal Saline) 1,000 mls @ 50 mls/hr IV BID@0600,1800 [facility] Last Admin: 04/08/19 06:19 Dose: 50 mls/hr Ondansetron HCl (Zofran) 4 mg IV Q6H PRN PRN Reason: Nausea/Vomiting Discontinued Medications Sodium Chloride (Normal Saline) 80 mls @ 3 mls/sec IV ASDIRECTED [facility] Last Admin: 04/06/19 20:43 Dose: 3 mls/sec Sodium Chloride (Normal Saline) 250 mls @ 50 mls/hr IV BID@0600,1800 [facility] Last Admin: 04/07/19 08:09 Dose: Not Given Iopamidol (Isovue-300 (61%)) 150 ml IV . DIRECTED [facility] Last Admin: 04/06/19 20:44 Dose: 150 ml Ketorolac Tromethamine (Toradol) 30 mg IVPUSH ONETIME ONE Stop: 04/06/19 20:06 Last Admin: 04/06/19 20:49 Dose: 30 mg Lidocaine HCl (Xylocaine 2% Jelly) 10 ml MUCMEM ONETIME ONE Stop: 04/06/19 22:09 Last Admin: 04/06/19 22:21 Dose: 10 ml Non-Formulary Medication (Epinephrine [Epipen 2-Chris]) 0.3 ml IM ASDIRECTED PRN PRN Reason: Anaphylaxis Sodium Chloride (Saline Flush) 10 ml FLUSH ASDIRECTED PRN PRN Reason: Keep Vein Open Last Admin: 04/06/19 20:50 Dose: 10 ml - Exam General: Alert, Oriented, Cooperative, No Acute Distress Lungs: Clear to Auscultation, Normal Respiratory Effort Cardiovascular: Regular Rate, Regular Rhythm GI/Abdominal Exam: Normal Bowel Sounds, Soft, Non-Tender, Other (Incisions appear well. ) Back Exam: Normal Inspection Extremities: Normal Inspection Skin: Warm, Dry, Intact Neurological: No New Focal Deficit Psy/Mental Status: Alert, Normal Affect, Normal Mood - Problem List & Annotations (1) Small bowel obstruction SNOMED Code(s): 546210728 Code(s): K56.609 - UNSP INTESTNL OBST, UNSP TO PARTIAL VERSUS COMPLETE OBST Status: Acute Current Visit: Yes - Problem List Review Problem List Initiated/Reviewed/Updated: Yes - My Orders Last 24 Hours: My Active Orders 04/08/19 10:03 NG [Gastrointestinal Tube Mgmt] [RC] ASDIRECTED 04/09/19 05:11 BASIC METABOLIC PANEL,BMP [CHEM] DAILY CBC W/O DIFF,HEMOGRAM [HEME] DAILY 04/10/19 05:11 BASIC METABOLIC PANEL,BMP [CHEM] DAILY CBC W/O DIFF,HEMOGRAM [HEME] DAILY 04/11/19 05:11 BASIC METABOLIC PANEL,BMP [CHEM] DAILY CBC W/O DIFF,HEMOGRAM [HEME] DAILY 04/12/19 05:11 BASIC METABOLIC PANEL,BMP [CHEM] DAILY CBC W/O DIFF,HEMOGRAM [HEME] DAILY - Assessment Assessment:: SBO. Says he passed a very small amount of flatus. He is in no distress. His abdominal x-rays are consistent with an SBO. 04/08/19--Passing gas and having BM's. Feels well. Abdominal x-rays show some gas has passed into colon but his proximal small bowel is still distended consistent with a partial SBO. - Plan Plan:: Impression: Small bowel obstruction post operative. Comfortable now. NG tube in place. Plan: Admit, IV support, NG tube. Hope SBO resolves. Continue present plan. 04/08/19--Plug NG.
[2019-04-09] MEDS: D5 1/2 NS w/ 20 mEq/L KCl 1,000 ML IV SCH (03:49)
--- NOTE | 2019-04-09 04:55 | CRLCR ---
Indication: Small-bowel obstruction Technique: Abdomen 2 view Comparison: Abdomen 04/08/2019 Findings/Impression: Dilated loops of small bowel are present in the epigastric region and mid abdomen with decompressed distal small bowel. Small amount of air is noted within the colon. No pneumoperitoneum on upright view. Enteric tube with tip at the proximal stomach. Prior lumbar spine surgery and pelvic mesh demonstrated. Compared to the prior examination, mildly worsened/increased caliber of the small bowel. Dictated by Carl Hampton MD @ Apr 09 2019 4:52AM Signed by Dr. Carl Hampton @ Apr 09 2019 4:53AM
[2019-04-09] MEDS: Sodium Chloride 0.9% 1,000 ML IV SCH (05:47)
[2019-04-09] MEDS ORDERED: Ketamine 500 MG/5 ML MDV IV SCH ×2 (07:15→11:00)
--- NOTE | 2019-04-09 08:18 | PN ---
CORRECTED REPORT DATE OF SERVICE: 04/09/2019 SUBJECTIVE: Chivo was admitted on 04/06/2019 with a partial small bowel obstruction. He has had an NG and IV fluids, has been n.p.o. with ice chips only. He continues to have pain yesterday. He continues to feel bloated and gassy. He is having bowel movements and passing gas. NG was clamped yesterday, during the night he asked that it be put back to low suction and he felt better with the [place] hooked up. Vital signs have been stable. Pain has been controlled. He reports it as a pressure, full feeling, right and left upper quadrants, comes and goes. Remainder of review of systems negative for any pertinent positives and negatives. He had six bowel movements during the night and four yesterday during the day. WBC was 12.2, hemoglobin 13.8; potassium 3.9. REVIEW OF SYSTEMS: Remainder of review of systems negative for any pertinent positives and negatives. OBJECTIVE: GENERAL: Chivo Rene is a 48-year-old male. VITAL SIGNS: Height is 6 feet. Weight is 285 pounds. TPR is 99, 164, 16, blood pressure 146/94. HEENT: Negative. NECK: Supple. HEART: Regular rate and rhythm. LUNGS: Clear. ABDOMEN: Slightly distended and generalized tenderness. ASSESSMENT: Partial small bowel obstruction. PLAN: 1. Schedule and have consent signed for exploratory laparotomy with release of small bowel obstruction and possible small bowel resection. General anesthesia, TAP block, ketamine bolus and ketamine drip. Case to follow on 04/09/2019. Surgeon, Dwaine Cardozo MD. 2. Cefoxitin IV 2 g on-call to OR. Incentive spirometer use as directed. 3. We will evaluate p.r.n. and orders to be written postoperatively. Fariba Myers PA-C /[id number]
[2019-04-09] MEDS ORDERED: Ketamine 50 MG in Sodium Chloride 0.9% 49.5 ML IV SCH (11:00)
[2019-04-09] MEDS: cefOXitin 2 GM in Sodium Chloride 0.9% 50 ML IV ONE ×2 (11:11→11:40)
[2019-04-09] MEDS ORDERED: fentaNYL 250 MCG/5 ML SDV ONE (11:26)
[2019-04-09] MEDS ORDERED: Succinylcholine 200 MG/10 ML MDV ONE (11:31)
[2019-04-09] MEDS ORDERED: Ondansetron 4 MG/2 ML SDV ONE (11:31)
[2019-04-09] MEDS ORDERED: Glycopyrrolate 0.2 MG/ML 5 ML MDV ONE (11:31)
[2019-04-09] MEDS ORDERED: Dexamethasone 4 MG/ML SDV ONE (11:31)
[2019-04-09] MEDS ORDERED: Neostigmine Methylsulfate 1 MG/ML 5 ML Syringe ONE (11:31)
[2019-04-09] MEDS ORDERED: Propofol 200 MG/20 ML SDV ONE (11:31)
[2019-04-09] MEDS ORDERED: Rocuronium 50 MG/5 ML Vial ONE (11:31)
[2019-04-09] MEDS ORDERED: Lidocaine 1% with EPINEPHrine 1:100,000 50 ML MDV ONE (12:18)
[2019-04-09] MEDS ORDERED: Bupivacaine 0.5% 50 ML MDV ONE (12:18)
[2019-04-09] MEDS ORDERED: Meropenem 500 MG SDV ONE (12:26)
[2019-04-09] MEDS ORDERED: hydrOXYzine HCl 100 MG/2 ML SDV IM ONE (13:40)
[2019-04-09] MEDS ORDERED: fentaNYL 100 MCG/2 ML SDV IVPUSH ONE ×2 (13:54→14:10)
[2019-04-09] MEDS ORDERED: Naloxone 0.4 MG/ML SDV IVPUSH PRN (14:20)
[2019-04-09] MEDS ORDERED: HYDROmorphone/Normal Saline 15 MG/30 ML PCA IV PRN (14:20)
[2019-04-09] MEDS ORDERED: Ondansetron 4 MG/2 ML SDV IVPUSH ONE (14:32)
[2019-04-09] MEDS ORDERED: Naloxone 0.4 MG/ML SDV IV PRN (15:55)
[2019-04-09] MEDS ORDERED: HYDROmorphone 0.5 MG/0.5 ML Syringe IVPUSH PRN (15:56)
[2019-04-09] MEDS ORDERED: Ondansetron 4 MG/2 ML SDV IVPUSH PRN (15:56)
[2019-04-09] MEDS ORDERED: HYDROmorphone 1 MG/ML Syringe IV PRN (15:56)
[2019-04-09] MEDS: Dextrose 5%-Lactated Ringers 1,000 ML IV SCH ×2 (16:06→22:30)
[2019-04-09] MEDS: Pantoprazole 40 MG Vial IVPUSH SCH (16:38)
[2019-04-09] MEDS: Lisinopril 10 MG Tab PO SCH (16:39)
[2019-04-09] MEDS: cefOXitin 2 GM in Sodium Chloride 0.9% 50 ML IV SCH ×2 (16:45→22:30)
[2019-04-09] MEDS: Nystatin Susp 100,000 Unit/ML 5 ML UD Cup PO SCH ×2 (16:45→21:48)
[2019-04-09] MEDS: Tamsulosin 0.4 MG Cap.ER PO SCH (21:47)
[2019-04-09] MEDS: Enoxaparin 40 MG/0.4 ML Syringe SUBCUT SCH (21:47)
[2019-04-09] MEDS: Cyclobenzaprine 10 MG Tab PO PRN (22:36)
[2019-04-10] MEDS: cefOXitin 2 GM in Sodium Chloride 0.9% 50 ML IV SCH ×4 (04:54→23:37)
[2019-04-10] MEDS: Pantoprazole 40 MG Vial IVPUSH SCH ×2 (04:54→16:30)
[2019-04-10] MEDS: Dextrose 5%-Lactated Ringers 1,000 ML IV SCH ×3 (04:54→23:37)
[2019-04-10] MEDS: Nystatin Susp 100,000 Unit/ML 5 ML UD Cup PO SCH ×4 (05:02→21:45)
[2019-04-10] MEDS: Docusate Sodium 100 MG Cap PO SCH ×2 (09:03→20:37)
[2019-04-10] MEDS: Bisacodyl 5 MG Tab PO SCH ×2 (09:03→20:37)
[2019-04-10] MEDS: Lisinopril 10 MG Tab PO SCH (09:03)
[2019-04-10] MEDS: Cyclobenzaprine 10 MG Tab PO PRN (20:37)
[2019-04-10] MEDS: Tamsulosin 0.4 MG Cap.ER PO SCH (20:38)
[2019-04-10] MEDS: Enoxaparin 40 MG/0.4 ML Syringe SUBCUT SCH (21:45)
[2019-04-11] MEDS: cefOXitin 2 GM in Sodium Chloride 0.9% 50 ML IV SCH ×2 (05:47→12:01)
[2019-04-11] MEDS: Pantoprazole 40 MG Vial IVPUSH SCH (05:48)
[2019-04-11] MEDS: Nystatin Susp 100,000 Unit/ML 5 ML UD Cup PO SCH ×4 (05:48→21:53)
[2019-04-11] MEDS ORDERED: Methocarbamol 500 MG Tab PO PRN (08:49)
[2019-04-11] MEDS: Lisinopril 10 MG Tab PO SCH (09:37)
[2019-04-11] MEDS: Docusate Sodium 100 MG Cap PO SCH ×2 (09:37→21:54)
[2019-04-11] MEDS: Bisacodyl 5 MG Tab PO SCH (09:37)
[2019-04-11] MEDS: Dextrose 5%-Lactated Ringers 1,000 ML IV SCH (09:43)
--- NOTE | 2019-04-11 11:08 | PN ---
CORRECTED REPORT DATE OF SERVICE: 04/11/2019 SUBJECTIVE: Chivo is postoperative day 2. He states he is not passing any flatus. He has been up ambulating. Clear liquid diet with oral intake 1580. Urine output is 1525. REVIEW OF SYSTEMS: Remainder of review of systems negative for any pertinent positives and negatives. OBJECTIVE: GENERAL: Chivo Rene is a 48-year-old male. He is alert and orientated. VITAL SIGNS: TPR 98.3, 72, 18. Blood pressure 143/80. HEENT: Negative. NECK: Supple. HEART: Regular rate and rhythm. LUNGS: Clear. ABDOMEN: Dressing is dry and intact. Abdominal binder is on. EXTREMITIES: Without peripheral edema. ASSESSMENT: Exploratory laparotomy with lysis of adhesions: 1. Removal of intraperitoneal Vicryl mesh. 2. Small-bowel resection. 3. Tube decompression of proximal small bowel and placement of Vicryl mesh. 4. Small bowel obstruction, secondary small bowel adhesions to the intraperitoneal mesh, focal de-serialization of the small bowel after dissection from mesh and marked distention of proximal small bowel. Date of surgery 04/09/2019. PLAN: 1. Full liquid diet, but go slow. 2. Dressing off, may shower. 3. Communication order when the patient has bowel movement to call, may advance diet. 4. Good pulmonary toilet. 5. We will evaluate p.r.n. or in a.m. 6. Methocarbamol 750 mg p.o. b.i.d. p.r.n. restarted. Fariba Myers PA-C /[id number]
[2019-04-11] MEDS ORDERED: Ondansetron 4 MG Tab.DIS PO PRN (14:34)
[2019-04-11] MEDS ORDERED: Pantoprazole 40 MG Tab.CR PO SCH (21:00)
[2019-04-11] MEDS: Enoxaparin 40 MG/0.4 ML Syringe SUBCUT SCH (21:54)
[2019-04-11] MEDS: Tamsulosin 0.4 MG Cap.ER PO SCH (21:54)
[2019-04-11] MEDS: Acetaminophen/oxyCODONE 325-5 MG Tab PO PRN (21:57)
[2019-04-12] MEDS ORDERED: Pantoprazole 40 MG Vial IV SCH (05:00)
[2019-04-12] MEDS: Nystatin Susp 100,000 Unit/ML 5 ML UD Cup PO SCH (05:44)
[2019-04-12 07:19] VITALS: PULSE 75
[2019-04-12] MEDS: Lisinopril 10 MG Tab PO SCH (08:26)
[2019-04-12] MEDS: Docusate Sodium 100 MG Cap PO SCH (08:26)
[2019-04-12] MEDS: Acetaminophen/oxyCODONE 325-5 MG Tab PO PRN (08:26)
[2019-04-12 08:27] VITALS: BP 124/78
--- NOTE | 2019-04-12 13:27 | DISCH ---
ADMISSION DIAGNOSIS: Partial small bowel obstruction. DISCHARGE DIAGNOSES: 1. Exploratory laparotomy with lysis of adhesions, removal of intraperitoneal Vicryl mesh, small bowel resection. 2. Tube decompression for proximal small bowel and placement of Vicryl mesh. POSTOPERATIVE DIAGNOSES: 1. Small bowel obstruction secondary to small bowel adhesions to the intraperitoneal mesh. 2. Focal deserialization of the small bowel after dissection from the mesh. 3. Marked distention of the proximal small bowel. 4. Date of surgery: 04/09/2019. Surgeon: Dwaine Cardozo MD. HISTORY: Chivo Rene is a 48-year-old male who had open bilateral inguinal hernia repair and laparoscopic umbilical hernia repair on 03/27/2019. Postoperatively, he did well on 04/06/2019 when he presented to the emergency room with a 24- to 48-hour history of abdominal cramping, nausea, and vomiting. A CT scan was consistent with a small bowel obstruction. He was treated medically with an NG, IV fluids by Suhail Ramirez MD, until 04/09/2019, and then he had his above surgical procedure by Dwaine Cardozo MD. He had no operative complications. On postoperative day #1, IV was decreased. He was started on clear liquid diet. Chivo reported thrush and he was started on nystatin swish and swallow. On postoperative day #2, he was started on clear liquid diet. Dressings were off. He could shower. He was also started on bowel stimulation. On 04/11/2019, postop day #2, he started having bowel movements with a bowel stimulation. His oral intake was adequate. Pain was well managed. He was able to be discharged to home. PHYSICAL EXAMINATION: GENERAL: Chivo Rene is a 48-year-old male. VITAL SIGNS: Height is 6 feet, weight is 285 pounds. TPR is 99.2, 75, 16, blood pressure 124/86. HEENT: Negative. NECK: Supple. HEART: Regular rate and rhythm. LUNGS: Clear. ABDOMEN: Stapled incision looks good. Abdominal binder is on. EXTREMITIES: Without peripheral edema. DISPOSITION: Discharged to home. CONDITION: Stable and improving. FOLLOWUP: Followup appointment with Fariba Myers PA-C, 04/23/2019 at 9:30 a.m. HOME MEDICATIONS: 1. Percocet 5/325 mg one tablet every 4 hours p.r.n. pain. He has enough at home from his first surgery. Declines refill. 2. Colace 100 mg b.i.d. #100. 3. Nystatin 5 mL q.i.d. 10 days, called to pharmacy. To resume home medications: 1. Aspirin 81 mg p.o. daily. 2. EpiPen, use as directed. 3. Lisinopril 30 mg daily. DIET: GI soft low residue, low-fiber diet. Drink 8 to 10 glasses of water. ACTIVITY: No lifting greater than 10 pounds for 6 weeks. Other activity: Walk at least 6 times daily, distance and time as tolerated. Driving: Do not drive for 1 week while on pain medication. Shower/bathing, may shower. DISCHARGE INSTRUCTIONS: Keep operative site clean and dry. Wear abdominal binder for 6 weeks and then as tolerated. Notify provider if any fever, increased pain, nausea, or vomiting. SPECIAL INSTRUCTIONS: Use incentive spirometer 10 times every hour while awake.
--- NOTE | 2019-04-16 13:49 | OR ---
DATE OF PROCEDURE: 04/09/2019 PREOPERATIVE DIAGNOSIS: Small bowel obstruction. POSTOPERATIVE DIAGNOSES: 1. Small bowel obstruction secondary to small bowel adherence to intraperitoneal mesh. 2. Focal deserosalization of small bowel after dissection for mesh. 3. Marked distention of proximal small bowel. OPERATIVE PROCEDURES: Exploratory laparotomy with, 1. Removal of intraperitoneal Vicryl mesh (11142). 2. Small bowel resection (89636). 3. Tube enterotomy for decompression of proximal small bowel (74392). 4. Placement of Interceed mesh to displace pelvic and abdominal ramírez from underlying viscera to limit recurrent adhesion formation (60684). ANESTHESIA: General. COAL WHEELER: Fariba Myers PA-C. INDICATIONS FOR PROCEDURE: The patient was admitted over the weekend with a picture of a small bowel obstruction. He is status post recent repair of a periumbilical hernia with mesh with placement of Vicryl mesh underlying this and presents now with bowel obstruction. He appears to be opening up somewhat, but still quite uncomfortable and distended, having been admitted 3 days ago. The plan will be to proceed with a limited laparotomy with release of bowel obstruction and bowel resection as indicated. Potential risks including bleeding and perforation were discussed, and the patient wishes to proceed. DETAILS OF PROCEDURE: The patient was taken to the operating room and placed in a supine position. After general endotracheal anesthesia was induced, a Schwartz catheter was inserted, and the abdomen prepped and draped. A midline incision was made from the estimated level of the previously placed permanent mesh upward toward the xiphoid. This was carried down through the skin and subcutaneous tissue and fascia. The peritoneal cavity was then entered. The patient was noted to have intense inflammatory reaction to the underlying Vicryl mesh as well as some adherence around the Ventrio ST mesh. This was dissected free. The segment of the small bowel was intermittently deserosalized. No enterotomies occurred. The dissection was continued down to the previously placed Ventrio mesh, but did not involve division of that. Once the bowel was freed up, it was run and area of obstruction appeared to have been alleviated. This having been related to some intense inflammation and angulation of the small bowel and reaction to the recent surgical intervention. With that, it was felt that the area of deserosalization will be at risk for small bowel fistula formation. Given this, we decided to resect that segment of small bowel, which was roughly 20 cm in length. Meropenem and Zyvox irrigation was then prepared and some gauze placed into that, and this was then positioned along the edges of the opening of the incision. The small bowel resection was then accomplished with a series of linear staplers. The side-to- side anastomosis was accomplished with internal firing of the Endo-ANDI 60-mm stapler, followed by a 45-mm stapler. Common opening was then closed with a ANDI stapler as well. Angles of anastomosis and mesenteric defect were then approximated with some 3-0 Vicryl stitch. There was no spill during the course of the procedure. Once the bowel resection was completed, the gloves, gowns and all instruments involved were removed from the field. At this point, no further problems were noted. The patient was felt to be at significant risk for additional adhesion formation to the Ventrio mesh, which was left in place. Given this, an Interceed mesh, which would have a different inflammatory response than the Vicryl mesh, was placed underneath the pelvic and abdominal ramírez, including the Ventrio mesh area. The midline fascia was then approximated with a #2 Vicryl stitch. The subcutaneous tissue was then irrigated with antibiotic-containing saline solution and then closed with 2 layers of 3-0 and 4-0 Vicryl stitch deep and then rodolfo for the skin. Dressing was applied. The patient was taken to the recovery room in a satisfactory condition. There were no evident complications. Physician assistant controller, Fariba Myers, played an essential role in assisting in this case, helping to position the patient, retract structures as needed, as well as suturing and cutting sutures when indicated. Her presence improved patient safety and decreased the operative time. Dwaine Cardozo MD /[id number]
--- NOTE | 2019-04-16 14:19 | PN ---
DATE OF SERVICE: 04/10/2019 The patient has been afebrile with stable vital signs, status post release of small bowel obstruction with small obstruction resection yesterday. Clinically, he is doing well. Pain control at this point appears to be adequate. We will continue the [employer] going for today and switch over to oral pain medication tomorrow and begin some scheduled Dulcolax or Colace for bowel stimulation. Dwaine Cardozo MD /[id number]
== END 2019-04-12 10:20 | disposition home or self-care (01) | DRG 331 ==
LOC: JP.ED 19:09 → JP.2SS 22:45 → JP.MS 04-12 10:07 → JP.2SS 04-12 10:09
PROVIDERS: ADMIT Surgery; ATTEND Surgery
PROC: 0DB80ZZ Excision of Small Intestine, Open Approach (ICD-10-PCS; principal; 2019-04-09)
PROC: 0DCW0ZZ Extirpation of Matter from Peritoneum, Open Approach (ICD-10-PCS; 2019-04-09)
PROC: 0WH Anatomical Regions, General, Insertion (ICD-10-PCS; 2019-04-09)
PROC: 3E0M05Z Introduction of Adhesion Barrier into Peritoneal Cavity, Open Approach (ICD-10-PCS; 2019-04-09)
DX: K56.609 Unspecified intestinal obstruction, unspecified as to partial versus complete obstruction (principal); K56.50 Intestinal adhesions [bands], unspecified as to partial versus complete obstruction; Z98.890 Other specified postprocedural states; E78.00 Pure hypercholesterolemia, unspecified; H54.7 Unspecified visual loss; M54.9 Dorsalgia, unspecified; I10 Essential (primary) hypertension; G89.29 Other chronic pain; F32.9 Major depressive disorder, single episode, unspecified; F41.9 Anxiety disorder, unspecified; F43.10 Post-traumatic stress disorder, unspecified; Z88.8 Allergy status to other drugs, medicaments and biological substances; Z79.82 Long term (current) use of aspirin; Z79.899 Other long term (current) drug therapy
CPT/HCPCS: 36415; 43752; 74177; 80053; 81001; 82150; 83690; 85025; 96374; 99285 ×2; J1885; J7030; 74019; 80048; 85027; 88300; 88307; 94762; A9270-GY; C9113; J0171; J0330; J0694; J1100; J1170; J1650; J2020; J2185; J2405; J2704; J2710; J2795; J3010; J3410; J3480; J3490; J7042; J7050

== ENCOUNTER 2021-11-07 22:10 | Emergency (ER) | payer OTHER, MEDICARE ==
[2021-11-07 22:30] VITALS: BP 144/97; PULSE 121
[2021-11-07] MEDS ORDERED: Ondansetron 4 MG/2 ML SDV IVPUSH ONE (22:59)
[2021-11-07] MEDS ORDERED: Sodium Chloride 0.9% 1,000 ML IV SCH (23:00)
[2021-11-07] MEDS ORDERED: Sodium Chloride 0.9% 10 ML Syringe FLUSH ONE (23:27)
[2021-11-07] MEDS ORDERED: Iopamidol 612 MG/ML 100 ML Bottle IV SCH (23:30)
[2021-11-07] MEDS ORDERED: Sodium Chloride 0.9% 50 ML IV SCH (23:30)
== END 2021-11-08 01:18 | disposition home or self-care (01) ==
LOC: JP.ED 22:10
DX: N39.0 Urinary tract infection, site not specified (principal); N32.2 Vesical fistula, not elsewhere classified; E86.0 Dehydration; E78.00 Pure hypercholesterolemia, unspecified; I10 Essential (primary) hypertension; Z98.1 Arthrodesis status; Z88.5 Allergy status to narcotic agent; Z86.16 Personal history of COVID-19; Z79.899 Other long term (current) drug therapy
CPT/HCPCS: 36415; 51701; 74177; 80053; 81001; 85025; 86140; 87086; 96374; 99283; 99284-25; J2405; J7030; Q9967